=== PATIENT | male | born 1980 | race Caucasian/White ===

== ENCOUNTER → 2022-10-09 | Outpatient (CLI) | payer OTHER, SELFPAY ==
--- NOTE | 2022-10-09 15:09 | NEURO_ITS ---
NCS and/or EMG Patient Report Ordering Doctor: Ed Tao NP DATE OF SERVICE: 10/09/22 Indication: Bilateral hand numbness and shooting pains which are worse on the right. Associated fatigue and muscles aches in both upper extremities. No localized or radicular neck pain. Findings: Nerve conduction studies were performed in the right and left upper extremities. The right median motor study recording the abductor pollicis brevis showed a normal amplitude, prolonged distal latency and normal conduction velocity. The right ulnar motor study recording the abductor digiti minimi showed a normal amplitude and normal distal latency. Right ulnar conduction velocities could not be accurately measured given the takeoff was masked by electrical artifact. The right median sensory response recording digit two showed a normal amplitude, prolonged latency and markedly slowed conduction velocity. The right ulnar sensory response recording digit five showed a normal amplitude, normal latency and borderline conduction velocity. The right radial sensory response recording over the extensor snuff box showed a normal amplitude, latency and conduction velocity. The left median motor study recording the abductor pollicis brevis showed a normal amplitude, prolonged distal latency and normal conduction velocity. The left ulnar motor study recording the abductor digiti minimi showed a normal amplitude, normal distal latency and normal conduction velocity. No conduction block or focal slowing was present across the elbow. The left median sensory response recording digit two showed a reduced amplitude, prolonged latency and markedly slowed conduction velocity. The left ulnar sensory response recording digit five showed a normal amplitude, normal latency and borderline conduction velocity. The left radial sensory response recording over the extensor snuff box showed a normal amplitude, latency and conduction velocity. Needle EMG of the right upper extremity muscles was performed. Mild active denervation was seen in the abductor pollicis brevis. No denervation was seen in any other muscle. Motor units in the abductor pollicis brevis were large amplitude and long duration with reduced recruitment. All other motor unit morphology, activation and recruitment patterns were normal. Needle EMG of the left abductor pollicis brevis muscle was performed. Insertional activity was increased. Motor units were large amplitude and long duration with reduced recruitment. Impression: This is an abnormal study. 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 The pathophysiology is predominantly demyelinating, though these is evidence of secondary axonal injury. These findings are compatible with the clinical diagnosis of carpal tunnel syndrome. Christopher Luther, D.O. Multi Select Codes Neurology Neurology Interp Codes: 64132-87 [facility] tst done w/nerv tst hogan (interp) (59), 55693-10 [facility] test done w/n test comp (interp) and 71416-53 Nrv cndj test 9-10 studies (interp)
== END | disposition home or self-care (01) ==
PROVIDERS: PCP Nurse Practitioner Family; Visit Provider Nurse Practitioner Family
DX: M79.643 Pain in unspecified hand (principal); R20.0 Anesthesia of skin
CPT/HCPCS: 95885; 95886; 95911

== ENCOUNTER → 2022-10-17 | Outpatient (CLI) | payer OTHER, SELFPAY ==
[2022-10-17 10:46] LABS: EXAGEN MAILED SPECIMEN
[2022-10-17 12:18] LABS: Absolute Lymphocyte Count 2.17 X10^3/uL (0.83-4.51); Absolute Neutrophil Count 4.1 X10^3/uL (2.0-7.7); Basophil# 0.08 X10^3/uL; Basophil% 1.1 % (0-1); Eosinophil# 0.24 X10^3/uL; Eosinophils% 3.3 % (0-5); Erythrocyte Sedimentation Rate 2 mm/hr (0-20); Hematocrit 44.5 % (40-54); Hemoglobin 15.4 g/dL (13.0-16.5); Lymphocyte # 2.17 X10^3/ul (0.83-4.51); Lymphocyte % 30.1 % (19-41); Mean Corp Hgb Conc 34.6 g/dL (32-36); Mean Corpuscular Hgb 31.8 pg (27.0-32.0); Mean Corpuscular Volume 91.9 fL (80-94); Mean Platelet Vol. 9.6 fl (6.2-12.0); Monocyte# 0.63 X10^3/uL; Monocyte% 8.7 % (0-10); NRBC Flagged by Analyzer 0 % (0-5); Neutrophil # 4.07 X10^3/uL (2.7-7.7); Neutrophil % 56.5 % (47-70); Platelet Count 313 K/mm3 (150-450); RBC Distribution Width CV 13.1 % (11.6-14.6); RBC Distribution Width SD 44.1 fl (35.1-43.9); Red Blood Count 4.84 M/mm3 (4.6-6.2); White Blood Count 7.2 K/mm3 (4.4-11.0)
[2022-10-17 12:22] LABS: Color, Urine Yellow (Yellow); Glucose, Dipstick Normal (Normal); Ketone-Dipstick Negative (Negative); Leukocyte Esterase-Dipstick Negative /ul (Negative); Nitrite-Dipstick Negative (Negative); Occult Blood-Urine Negative /ul (Negative); Protein-Dipstick Negative (Negative); Urine Bilirubin Dipstick Negative (Negative); Urine Clarity Clear (Clear); Urine Urobilinogen Normal (Normal)
[2022-10-17 12:23] LABS: International Normalized Ratio 0.9; Prothrombin Time (Protime)PT. 12.3 SECONDS (11.7-14.9)
[2022-10-17 12:25] LABS: Partial Thromboplast Time 28.6 Seconds (24.1-36.2)
[2022-10-17 12:32] LABS: ALB/GLOB Ratio 1.1 RATIO (0.9-2.4); AST(SGOT) 23 U/L (15-37); Alanine Aminotransfer ALT/SGPT 29 U/L (16-61); Albumin, Serum 3.8 g/dL (3.2-5.0); Alkaline Phosphatase 65 U/L (45-117); Anion Gap 5 (5-15); BUN 20 mg/dL (7-18); BUN/Creat Ratio 18.7 RATIO (10-20); CRP < 2.90 mg/L (0.0-3.0); Calcium,Total 8.7 mg/dL (8.5-10.1); Chloride 106 mmol/L (98-107); Creatinine, Serum 1.07 mg/dL (0.70-1.30); EST Glomerular Filtration Rate 81 mL/min (>60); Est Glom Filt Rate - Afr Amer 97 mL/min (>60); Globulin 3.6 g/dL (2.2-4.2); Glucose 96 mg/dL (74-106); Potassium 4.3 mmol/L (3.5-5.1); Protein, Total 7.4 g/dL (6.4-8.2); Sodium Level 138 mmol/L (136-145)
[2022-10-17 12:34] LABS: Protein, Urine (Random) < 6.0 mg/dL (<11.9)
[2022-10-17 12:56] LABS: Hepatitis B Surface Antibody Non-Reactive; Hepatitis B Surface Antigen Non-Reactive (Nonreactive); Hepatitis C Antibody Non-Reactive (Nonreactive)
[2022-10-19 10:08] LABS: Dilute Prothrombin Time (dPT) 37.6 sec (0.0-47.6); Dilute Russell Viper Venom 37.8 sec (0.0-47.0); Hexagonal Phase Phospholipid 6 sec (0-11); Thrombin Time 16.9 sec (0.0-23.0); dPT Confirm Ratio 1.13 Ratio (0.00-1.34)
[2022-10-20 18:48] LABS: Interpretation Comment: (.); PTT-LA 36.1 sec (0.0-43.5)
== END | disposition home or self-care (01) ==
LOC: MTLAB 09:43
PROVIDERS: PCP Nurse Practitioner Family; Referring Provider Internal Medicine Rheumatology; Visit Provider Internal Medicine Rheumatology
DX: M06.4 Inflammatory polyarthropathy (principal); R76.8 Other specified abnormal immunological findings in serum
CPT/HCPCS: 36415; 80053; 81002; 82570; 84156; 85025; 85598; 85610; 85652; 85670; 85730; 86140; 86706; 86803; 87340

== ENCOUNTER → 2023-01-04 | Outpatient (CLI) | payer OTHER, SELFPAY ==
[2023-01-04 10:30] LABS: Absolute Neutrophil Count 4.8 X10^3/uL (2.0-7.7); Basophil# 0.07 X10^3/uL; Basophil% 0.8 % (0-1); Eosinophil# 0.26 X10^3/uL; Eosinophils% 2.8 % (0-5); Hematocrit 42.9 % (40-54); Hemoglobin 14.5 g/dL (13.0-16.5); Lymphocyte % 32.3 % (19-41); Mean Corp Hgb Conc 33.8 g/dL (32-36); Mean Corpuscular Hgb 31.1 pg (27.0-32.0); Mean Corpuscular Volume 92.1 fL (80-94); Mean Platelet Vol. 9.8 fl (6.2-12.0); Monocyte# 1.09 X10^3/uL; Monocyte% 11.7 % (0-10); NRBC Flagged by Analyzer 0 % (0-5); Neutrophil # 4.83 X10^3/uL (2.7-7.7); Platelet Count 310 K/mm3 (150-450); RBC Distribution Width CV 14.5 % (11.6-14.6); Red Blood Count 4.66 M/mm3 (4.6-6.2); White Blood Count 9.3 K/mm3 (4.4-11.0)
[2023-01-04 11:09] LABS: ALB/GLOB Ratio 1.1 RATIO (0.9-2.4); AST(SGOT) 20 U/L (15-37); Alanine Aminotransfer ALT/SGPT 32 U/L (16-61); Albumin, Serum 3.8 g/dL (3.2-5.0); Alkaline Phosphatase 73 U/L (45-117); Anion Gap 9 (5-15); BUN 22 mg/dL (7-18); BUN/Creat Ratio 19.6 RATIO (10-20); Calcium,Total 8.7 mg/dL (8.5-10.1); Chloride 103 mmol/L (98-107); Creatinine, Serum 1.12 mg/dL (0.70-1.30); EST Glomerular Filtration Rate 76 mL/min (>60); Est Glom Filt Rate - Afr Amer 92 mL/min (>60); Globulin 3.6 g/dL (2.2-4.2); Glucose 86 mg/dL (74-106); Protein, Total 7.4 g/dL (6.4-8.2); Sodium Level 138 mmol/L (136-145)
== END | disposition home or self-care (01) ==
LOC: MTLAB 07:17
PROVIDERS: PCP Nurse Practitioner Family; Referring Provider Internal Medicine Rheumatology; Visit Provider Internal Medicine Rheumatology
DX: M06.4 Inflammatory polyarthropathy (principal); Z79.899 Other long term (current) drug therapy; R76.8 Other specified abnormal immunological findings in serum
CPT/HCPCS: 36415; 80053; 85025

== ENCOUNTER → 2023-03-05 | Outpatient (CLI) | payer OTHER, SELFPAY ==
[2023-03-05 09:59] LABS: Absolute Lymphocyte Count 1.96 X10^3/uL (0.83-4.51); Absolute Neutrophil Count 3.1 X10^3/uL (2.0-7.7); Basophil# 0.08 X10^3/uL; Basophil% 1.3 % (0-1); Eosinophil# 0.19 X10^3/uL; Eosinophils% 3.1 % (0-5); Hemoglobin 15.4 g/dL (13.0-16.5); Lymphocyte # 1.96 X10^3/ul (0.83-4.51); Mean Corpuscular Hgb 33.1 pg (27.0-32.0); Mean Corpuscular Volume 94.6 fL (80-94); Mean Platelet Vol. 9.6 fl (6.2-12.0); Monocyte# 0.74 X10^3/uL; Monocyte% 12.1 % (0-10); NRBC Flagged by Analyzer 0 % (0-5); Neutrophil # 3.13 X10^3/uL (2.7-7.7); Neutrophil % 51.2 % (47-70); Platelet Count 315 K/mm3 (150-450); RBC Distribution Width CV 14.4 % (11.6-14.6); RBC Distribution Width SD 49.2 fl (35.1-43.9); Red Blood Count 4.65 M/mm3 (4.6-6.2); White Blood Count 6.1 K/mm3 (4.4-11.0)
[2023-03-05 10:37] LABS: AST(SGOT) 26 U/L (15-37); Alanine Aminotransfer ALT/SGPT 30 U/L (16-61); Albumin, Serum 3.6 g/dL (3.2-5.0); Alkaline Phosphatase 62 U/L (45-117); Anion Gap 6 (5-15); BUN 18 mg/dL (7-18); BUN/Creat Ratio 14.5 RATIO (10-20); Calcium,Total 8.6 mg/dL (8.5-10.1); Chloride 107 mmol/L (98-107); Creatinine, Serum 1.24 mg/dL (0.70-1.30); EST Glomerular Filtration Rate 68 mL/min (>60); Est Glom Filt Rate - Afr Amer 82 mL/min (>60); Globulin 3.5 g/dL (2.2-4.2); Glucose 92 mg/dL (74-106); Potassium 3.8 mmol/L (3.5-5.1); Protein, Total 7.1 g/dL (6.4-8.2); Sodium Level 139 mmol/L (136-145)
== END | disposition home or self-care (01) ==
LOC: MTLAB 08:30
PROVIDERS: PCP Family Medicine; Referring Provider Internal Medicine Rheumatology; Visit Provider Internal Medicine Rheumatology
DX: M06.4 Inflammatory polyarthropathy (principal); Z79.899 Other long term (current) drug therapy
CPT/HCPCS: 36415; 80053; 85025

== ENCOUNTER → 2023-05-24 | Outpatient (CLI) | payer OTHER, SELFPAY ==
[2023-05-24 10:15] LABS: Absolute Lymphocyte Count 2.34 X10^3/uL (0.83-4.51); Absolute Neutrophil Count 4.6 X10^3/uL (2.0-7.7); Basophil# 0.12 X10^3/uL; Basophil% 1.4 % (0-1); Eosinophils% 3.6 % (0-5); Hematocrit 43.9 % (40-54); Hemoglobin 14.9 g/dL (13.0-16.5); Lymphocyte # 2.34 X10^3/ul (0.83-4.51); Lymphocyte % 27.8 % (19-41); Mean Corp Hgb Conc 33.9 g/dL (32-36); Mean Corpuscular Hgb 33.1 pg (27.0-32.0); Mean Corpuscular Volume 97.6 fL (80-94); Mean Platelet Vol. 9.8 fl (6.2-12.0); Monocyte# 0.98 X10^3/uL; Monocyte% 11.7 % (0-10); NRBC Flagged by Analyzer 0 % (0-5); Neutrophil # 4.61 X10^3/uL (2.7-7.7); Neutrophil % 54.8 % (47-70); Platelet Count 335 K/mm3 (150-450); RBC Distribution Width CV 14.4 % (11.6-14.6); RBC Distribution Width SD 51.4 fl (35.1-43.9); White Blood Count 8.4 K/mm3 (4.4-11.0)
[2023-05-24 10:56] LABS: ALB/GLOB Ratio 1.1 RATIO (0.9-2.4); AST(SGOT) 35 U/L (15-37); Alanine Aminotransfer ALT/SGPT 58 U/L (16-61); Albumin, Serum 3.8 g/dL (3.2-5.0); Alkaline Phosphatase 74 U/L (45-117); Anion Gap 5 (5-15); BUN 11 mg/dL (7-18); BUN/Creat Ratio 9.4 RATIO (10-20); Calcium,Total 8.7 mg/dL (8.5-10.1); Chloride 106 mmol/L (98-107); Creatinine, Serum 1.17 mg/dL (0.70-1.30); EST Glomerular Filtration Rate 72 mL/min (>60); Est Glom Filt Rate - Afr Amer 88 mL/min (>60); Globulin 3.6 g/dL (2.2-4.2); Glucose 93 mg/dL (74-106); Potassium 3.8 mmol/L (3.5-5.1); Protein, Total 7.4 g/dL (6.4-8.2); Sodium Level 138 mmol/L (136-145)
== END | disposition home or self-care (01) ==
LOC: MTLAB 07:18
PROVIDERS: PCP Family Medicine; Visit Provider Internal Medicine Rheumatology
DX: M06.4 Inflammatory polyarthropathy (principal); K21.9 Gastro-esophageal reflux disease without esophagitis; Z79.899 Other long term (current) drug therapy
CPT/HCPCS: 36415; 80053; 85025

== ENCOUNTER → 2023-07-23 | Outpatient (CLI) | payer OTHER, SELFPAY ==
[2023-07-23 10:32] LABS: Absolute Lymphocyte Count 2.09 X10^3/uL (0.83-4.51); Absolute Neutrophil Count 5.8 X10^3/uL (2.0-7.7); Basophil% 1.1 % (0-1); Eosinophil# 0.22 X10^3/uL; Eosinophils% 2.3 % (0-5); Hematocrit 42.4 % (40-54); Hemoglobin 14.2 g/dL (13.0-16.5); Lymphocyte # 2.09 X10^3/ul (0.83-4.51); Lymphocyte % 22.2 % (19-41); Mean Corp Hgb Conc 33.5 g/dL (32-36); Mean Corpuscular Hgb 32.7 pg (27.0-32.0); Mean Corpuscular Volume 97.7 fL (80-94); Monocyte# 1.04 X10^3/uL; NRBC Flagged by Analyzer 0 % (0-5); Neutrophil # 5.82 X10^3/uL (2.7-7.7); Neutrophil % 61.8 % (47-70); Platelet Count 342 K/mm3 (150-450); RBC Distribution Width CV 14.4 % (11.6-14.6); RBC Distribution Width SD 51.3 fl (35.1-43.9); Red Blood Count 4.34 M/mm3 (4.6-6.2); White Blood Count 9.4 K/mm3 (4.4-11.0)
[2023-07-23 11:14] LABS: ALB/GLOB Ratio 1.1 RATIO (0.9-2.4); AST(SGOT) 31 U/L (15-37); Alanine Aminotransfer ALT/SGPT 38 U/L (16-61); Albumin, Serum 3.8 g/dL (3.2-5.0); Alkaline Phosphatase 69 U/L (45-117); Anion Gap 5 (5-15); BUN 9 mg/dL (7-18); BUN/Creat Ratio 7.7 RATIO (10-20); Calcium,Total 8.8 mg/dL (8.5-10.1); Chloride 105 mmol/L (98-107); Creatinine, Serum 1.17 mg/dL (0.70-1.30); EST Glomerular Filtration Rate 72 mL/min (>60); Est Glom Filt Rate - Afr Amer 88 mL/min (>60); Globulin 3.5 g/dL (2.2-4.2); Glucose 89 mg/dL (74-106); Potassium 3.8 mmol/L (3.5-5.1); Protein, Total 7.3 g/dL (6.4-8.2); Sodium Level 138 mmol/L (136-145)
== END | disposition home or self-care (01) ==
LOC: MTLAB 07:16
PROVIDERS: PCP Family Medicine; Referring Provider Internal Medicine Rheumatology; Visit Provider Internal Medicine Rheumatology
DX: M06.4 Inflammatory polyarthropathy (principal); Z79.899 Other long term (current) drug therapy
CPT/HCPCS: 36415; 80053; 85025

== ENCOUNTER → 2023-10-25 | Outpatient (CLI) | payer OTHER, SELFPAY ==
--- OUTSIDE RECORDS SUMMARY | 2023-10-25 07:18 | XMS RPT_ITS | CCD ---
Author Name Unknown Address [address] [place] [address] Organization [facility] Care Team Providers Care Executive Administrative Asst Name Role Phone TYRESE DE LOS SANTOS (OD) Unavailable Unavailable TONY ZURITA Unavailable Unavailable TYRESE DE LOS SANTOS (OD) Unavailable Unavailable TYRESE DE LOS SANTOS (OD) Unavailable Unavailable ABENA WAGNER Unavailable Unavailable ABENA WAGNER Unavailable Unavailable NELA DANIEL, DR NUNEZ Admitting Unavail syl RONDON MD, DR NUNEZ Consulting Unavail able NELA DANIEL, DR NUNEZ Attending Unavail able CAREY DANIEL, DR JIMENEZ Primary Care Unavailable CAREY DANIEL, DR JIMENEZ Consulting Unavailable Lauren [phone], Corey [phone] Co nsulting Unavailable MONICA WATSON CRNA Consulting Unavail able BRYAN ARAUJO MD Consulting Unavailable Required, No Pcp Unavailable Unavailable Pastor Ghosh Unavailable Unavailable Pastor Ghosh Attending Unavailable Aislinn, Ms. Ed Good Attending Unavail able Allergies Allergy Classification Reported Allergen(s) Allergy Type Date of Onset Reaction(s) Facility Sulfonamides (antibiotic) (1 source) Sulfonamides (Antibiotic) Drug Allergy [facility] Repository (1 source) Sulfonamides (Antibiotic); Translations: [SULFA (SULFONAMIDE ANTIBIOTICS)] Propensity to adverse reactions to drug (disorder) [facility] Repository (1 source) Sulfonamides (Antibiotic) Unknown [facility] Problems Active Problems Problem Classification Problem Date Documented Da te Episodic/Chronic Essential hypertension (1 source) Essential (primary) hypertension; Translations: [Essential (primary) hypertension] Onset: 08-16-2021 Chronic Mood disorders (1 source) Depressive disorder; Translations: [Depressive disorder, not elsewhere classified] 08-16-2021 Chronic Mood disorders (2 sources) Mood disorders; Translations: [Depression, unspecified] Onset: 08-16-2021 08-16-2021 Osteoarthritis (2 sources) Primary osteoarthritis, right shoulder; Translations: [Primary osteoarthritis, left shoulder] Onset: 07-13-2022 Chronic Other non-traumatic joint disorders (1 source) Pain in unspecified shoulder; Translations: [Pain in unspecified shoulder] Onset: 07-13-2022 Episodic Spondylosis; intervertebral disc disorders; other back problems (2 sources) Dorsalgia, unspecified; Translations: [Dorsalgia, unspecified] Onset: 07-13-2022 Episodic Superficial injury; contusion (2 sources) Superficial foreign body, right foot, initial encounter; Translations: [SUPERFICIAL FB RT FOOT INITIAL] Onset: 12-09-2020 Episodic Unclassified (2 sources) EXAM 08-15-2021 Past or Other Problems Problem Classification Problem Date Documented Da te Episodic/Chronic Allergic reactions (1 source) Allergy status to sulfonamides status; Translations: [Allergy status to sulfonamides] Onset: 08-16-2021 Episodic E Codes: Unspecified (1 source) Blood alcohol level of 200-239 mg/100 ml; Translations: [Blood alcohol level of 200-239 mg/100 ml] Onset: 08-16-2021 Episodic Suicide and intentional self-inflicted injury (1 source) Suicidal ideations; Translations: [Suicidal ideations] Onset: 08-16-2021 Episodic Results Test Name Value Interpretation Reference Range Facil ity Vital Signs Date Time Vital Sign Value Performing Clinician Facility 08-16-2021 14:06-0500 Diastolic blood pressure 98 mm[Hg] No Pcp Required [facility] 08-16-2021 14:06-0500 Heart rate 86 /min No Pcp Required [facility] 08-16-2021 14:06-0500 Respiratory rate 16 /min No Pcp Required [facility] 08-16-2021 14:06-0500 SaO2% (BldA) [Mass fraction] 98 % No Pcp Required [facility] 08-16-2021 14:06-0500 Systolic blood pressure 124 mm[Hg] No Pcp Required [facility] 08-16-2021 06:38-0500 Body temperature 98.42 [degF] No Pcp Required [facility] Encounters Encounter Date Encounter Type Care Provider Facility Start: 07-13-2022 ambulatory Ms. Ed Tao Facility:[id number] Start: 08-15-2021 End: 08-16-2021 Emergency department patient visit Pastor Ghosh [facility] Emergency 12 Start: 12-09-2020 End: 12-09-[address] ENRIQUE RONDON MD Facility:[facility] Start: 05-20-2018 End: 05-21-2018 Patient encounter ABENA WAGNER [facility] Start: 05-10-2018 End: 05-13-2018 Patient encounter TYRESE (OD) CHUCTANG [facility] Start: 05-08-2018 End: 05-09-2018 Patient encounter TYRESE (OD) [facility] Payers Date Payer Category Payer Unknown [id number] 1980 Unknown [id number] 1980 Unknown [id number] Unknown [id number] Unknown Social History Date Type Detail Facility [facility] Tobacco smoking consumption unknown [facility] Clinical Note 12-09-2020 Note Date & Type Note Facility 12-09-2020 Note CHEST PA 12/09/2020 6:12 AM EDT Indication: Pre-surgery evaluation Technique: Portable AP radiograph of the chest was obtained with dual-energy technique. Comparison: May 04, 2016 Findings: The lungs are adequately inflated. No acute rib fractures, pneumothorax or mediastinal shift. No consolidation, edema, or effusion. Heart is normal in size and contour. Impression: No acute findings. [facility] Summary Purpose Family History No Family History Records FoundNo Family History Records FoundNo Family History Records Found Advance Directives No Advanced Directives Records FoundNo Advanced Directives Records FoundNo Advanced Directives Records Found Additional Source Comments (unrecognized sect ion and content) No Status Records FoundNo Status Records FoundNo Status Records Found INFORMATION SOURCE (unrecogn ized section and content) DATE CREATED AUTHOR AUTHOR'S ORGANIZ ATION 12/24/2020 [facility] DATE CREATED AUTHOR AUTHOR'S ORGANIZ ATION 07/16/2022 [facility] <item> Privacy Markings (unrecogniz ed section and content) Section Author: Pennie Fox PROHIBITION ON REDISCLOSURE OF CONFIDENTIAL INFORMATION This notice accompanies a disclosure of information concerning a client made to you with the consent of such client. FOR RECORDS PERTAINING TO PATIENTS WHO ARE OR HAVE BEEN ENROLLED IN A CHEMICAL DEPENDENCY/SUBSTANCEABUSE PROGRAM, SOME INFORMATION MAY BE OMITTED. This clinical summary was aggregated from multiple sources. Caution should be exercised in using it in the provision of clinical care. This summary normalizes information from multiple sources, and as a consequence, information in this document may materially change the coding, format and clinical context of patient data. In addition, data may be omitted in some cases. CLINICAL DECISIONS SHOULD BE BASED ON THE PRIMARY CLINICAL RECORDS. [facility] [employer] provides no warranty or guarantee of the accuracy or completeness of information in this document.
[2023-10-25 10:13] LABS: Absolute Lymphocyte Count 2.67 X10^3/uL (0.83-4.51); Absolute Neutrophil Count 4.7 X10^3/uL (2.0-7.7); Basophil% 1.1 % (0-1); Eosinophil# 0.26 X10^3/uL; Eosinophils% 2.9 % (0-5); Hematocrit 42.7 % (40-54); Hemoglobin 14.5 g/dL (13.0-16.5); Lymphocyte # 2.67 X10^3/ul (0.83-4.51); Lymphocyte % 30.1 % (19-41); Mean Corpuscular Hgb 33.1 pg (27.0-32.0); Mean Corpuscular Volume 97.5 fL (80-94); Mean Platelet Vol. 9.4 fl (6.2-12.0); Monocyte# 1.13 X10^3/uL; Monocyte% 12.7 % (0-10); NRBC Flagged by Analyzer 0 % (0-5); Neutrophil # 4.69 X10^3/uL (2.7-7.7); Neutrophil % 52.9 % (47-70); Platelet Count 342 K/mm3 (150-450); RBC Distribution Width CV 14.8 % (11.6-14.6); RBC Distribution Width SD 52.1 fl (35.1-43.9); Red Blood Count 4.38 M/mm3 (4.6-6.2); White Blood Count 8.9 K/mm3 (4.4-11.0)
[2023-10-25 10:28] LABS: ALB/GLOB Ratio 1.1 RATIO (0.9-2.4); AST(SGOT) 20 U/L (15-37); Alanine Aminotransfer ALT/SGPT 39 U/L (16-61); Albumin, Serum 3.9 g/dL (3.2-5.0); Alkaline Phosphatase 75 U/L (45-117); Anion Gap 3 (5-15); BUN 13 mg/dL (7-18); BUN/Creat Ratio 11.2 RATIO (10-20); Calcium,Total 9.3 mg/dL (8.5-10.1); Chloride 107 mmol/L (98-107); Creatinine, Serum 1.16 mg/dL (0.70-1.30); EST Glomerular Filtration Rate 73 mL/min (>60); Est Glom Filt Rate - Afr Amer 88 mL/min (>60); Globulin 3.7 g/dL (2.2-4.2); Glucose 85 mg/dL (74-106); Potassium 3.9 mmol/L (3.5-5.1); Protein, Total 7.6 g/dL (6.4-8.2); Sodium Level 138 mmol/L (136-145)
== END | disposition home or self-care (01) ==
PROVIDERS: PCP Family Medicine; Referring Provider Internal Medicine Rheumatology; Visit Provider Internal Medicine Rheumatology
DX: M06.4 Inflammatory polyarthropathy (principal); Z79.899 Other long term (current) drug therapy
CPT/HCPCS: 36415; 80053; 85025